=== PATIENT | male | born 1995 | race Caucasian/White ===

== ENCOUNTER 2021-03-04 16:59 | Emergency (ER) | payer BC ==
[2021-03-04] MEDS ORDERED: MVI, Adult with Vitamin K 10 ML, Thiamine 100 MG, Folic Acid 1 MG, Magnesium Sulfate 3 ... IV SCH ×5 (17:15)
--- NOTE | 2021-03-04 17:30 | EDM.PDOC ---
ED HPI GENERAL MEDICAL PROBLEM - General Chief Complaint: Drug or Alcohol Abuse Stated Complaint: INTOXICATED Time Seen by Provider: 03/04/21 16:59 Source of Information: Reports: Patient, EMS History Limitations: Reports: Altered Mental Status - History of Present Illness INITIAL COMMENTS - FREE TEXT/NARRATIVE: 25 yo m brought in to ED by EMS 2/2 suspected alcohol intoxication. EMS reported that BS was 123 and that pt was non-responsive. By the time the pt arrived in trauma room 2 he was A/O X3. He stated that he has not had anything but alcohol including no food or fluids. He was at an outdoor activity. He reports that he is not an everyday drinker, he has not used any elicit drugs, and he has never had withdraw. He denies pain, chest pain, nausea, and SOB. He has had a recent trauma on 11/16/2020, a crush injury the the LLE but that this injury is being properly cared for. He has no other complaints or concerns at this time. - Related Data Allergies Allergy/AdvReac Type Severity Reaction Status Date / Time No Known Allergies Allergy Verified 03/04/21 17:14 Home Meds: Home Meds NK [No Known Home Meds] 03/04/21 [History] ED ROS GENERAL - Review of Systems Review Of Systems: See Below Constitutional: Reports: Weakness, Fatigue HEENT: Reports: No Symptoms Respiratory: Reports: No Symptoms Cardiovascular: Reports: No Symptoms Endocrine: Reports: No Symptoms GI/Abdominal: Reports: No Symptoms : Reports: No Symptoms Musculoskeletal: Reports: Other (recent, 11/16/2020, crush injury to LLE) Skin: Reports: Other (skin graft left anterior thigh, wound anterior lower leg) Neurological: Reports: No Symptoms Psychiatric: Reports: No Symptoms Hematologic/Lymphatic: Reports: No Symptoms Immunologic: Reports: No Symptoms - Physical Exam Exam: See Below Exam Limited By: No Limitations General Appearance: Lethargic, Other (easily wakes) Eye Exam: Bilateral Eye: EOMI, PERRL Head Exam: Atraumatic Neck: Normal Inspection Respiratory/Chest: No Respiratory Distress, Lungs Clear, Normal Breath Sounds Cardiovascular: Normal Peripheral Pulses, Regular Rate, Rhythm, No Murmur GI/Abdominal: Normal Bowel Sounds, Non-Tender Neuro Exam (Abbreviated): Alert, Oriented, Normal Cognition, Other (moves all extremities on request, sensation and strength intact rafael) Back Exam: Normal Inspection. No: CVA Tenderness (R), CVA Tenderness (L), Paraspinal Tenderness, Vertebral Tenderness Extremities: Other (large flutuleant lesion LLE, skin grafting left thigh) Psychiatric: Normal Affect, Normal Mood Course - Vital Signs Last Recorded V/S: Last Vital Signs Temp 36.5 C 03/04/21 17:15 Pulse 114 H 03/04/21 17:15 Resp 18 03/04/21 17:15 BP 122/68 03/04/21 17:15 Pulse Ox 95 03/04/21 17:15 - Orders/Labs/Meds Orders: Active Orders 24 hr Category Date Time Status DRUG SCREEN, URINE ALERE [URCHEM] Stat Lab 03/04/21 17:15 Ordered MVI, Adult with Vitamin K [Infuvite Adult] 10 ml Med 03/04/21 17:15 Active Thiamine [Vitamin B-1] 100 mg Folic Acid 1 mg Magnesium Sulfate [Magnesium Sulfate 50%] 3 gm Sodium Chloride 0.9% [Normal Saline] 1,000 ml IV ASDIRECTED Sodium Chloride 0.9% [Normal Saline] 1,000 ml Med 03/04/21 18:23 Active IV .BOLUS Medication Orders Multivitamins/Minerals 10 ml/Thiamine HCl 100 mg/ Folic Acid 1 mg/ Magnesium Sulfate 3 gm/ Sodium Chloride 1,017.2 mls @ 999 mls/hr IV ASDIRECTED [facility] Last Admin: 03/04/21 18:01 Dose: 999 mls/hr Documented by: DIFFCAL Sodium Chloride (Normal Saline) 1,000 mls @ 999 mls/hr IV .BOLUS ONE Stop: 03/04/21 19:23 Labs: Laboratory Tests 03/04/21 03/04/21 03/04/21 Range/Units 18:25 18:25 18:25 WBC 10.6 H (3.2-10.1) x10-3/uL RBC 5.40 (3.90-5.90) x10(6)uL Hgb 14.2 (12.9-17.7) g/dL Hct 43.7 (38.3-50.1) % MCV 80.9 (80.8-98.7) fL MCH 26.2 L (27.0-33.3) pg MCHC 32.4 (28.7-35.3) g/dL RDW 15.2 H (12.4-15.0) % Plt Count 251 (117-477) x10(3)uL MPV 8.3 (6.7-11.0) fL Neut % (Auto) 84.4 H (40.3-71.8) % Lymph % (Auto) 10.8 L (15.8-45.3) % Cameron % (Auto) 4.5 L (5.5-15.2) % Eos % (Auto) 0.1 (0.1-6.8) % Baso % (Auto) 0.2 L (0.3-3.8) % Neut # (Auto) 9.0 H (1.7-6.9) x10-3/uL Lymph # (Auto) 1.1 (0.5-4.5) x10-3/uL Cameron # (Auto) 0.5 (0.0-1.2) x10-3/uL Eos # (Auto) 0.0 (0.0-0.6) x10-3/uL Baso # (Auto) 0.0 (0.0-0.3) x10-3/uL Sodium 144 (135-145) mmol/L Potassium 4.2 (3.5-5.3) mmol/L Chloride 106 (100-110) mmol/L Carbon Dioxide 22 (21-32) mmol/L BUN 13 (7-18) mg/dL Creatinine 1.1 (0.70-1.30) mg/dL Est Cr Clr Drug Dosing 110.72 mL/min Estimated GFR (MDRD) > 60 (>60) BUN/Creatinine Ratio 11.8 (9-20) Glucose 96 (80-116) mg/dL Calcium 8.2 L (8.6-10.2) mg/dL Total Bilirubin 0.2 (0.1-1.3) mg/dL AST 22 (5-25) IU/L ALT 48 H (12-36) U/L Alkaline Phosphatase 98 (56-112) IU/L Total Protein 7.0 (6.0-8.0) g/dL Albumin 3.8 (3.5-5.2) g/dL Globulin 3.2 g/dL Albumin/Globulin Ratio 1.2 Ethyl Alcohol 0.22 H* (<0.03) % Meds: Medications Generic Name Dose Route Start Last Admin Trade Name Dorita PRN Reason Stop Dose Admin Multivitamins/Minerals 10 ml/ 1,017.2 mls @ 999 mls/hr 03/04/21 17:15 03/04/21 18:01 Thiamine HCl 100 mg/ Folic IV 999 mls/hr Acid 1 mg/ Magnesium Sulfate 3 ASDIRECTED JEAN CARLOS Administration gm/ Sodium Chloride Sodium Chloride 1,000 mls @ 999 mls/hr 03/04/21 18:23 Normal Saline IV 03/04/21 19:23 .BOLUS ONE Departure - Departure Time of Disposition: 19:17 Disposition: Still A Patient 30 Clinical Impression: Alcohol abuse - Discharge Information *PRESCRIPTION DRUG MONITORING PROGRAM REVIEWED*: Not Applicable *COPY OF PRESCRIPTION DRUG MONITORING REPORT IN PATIENT THONG: Not Applicable Forms: ED Department Discharge Sepsis Event Note (ED) - Focused Exam Vital Signs: Vital Signs Temp Pulse Resp BP Pulse Ox 03/04/21 17:15 36.5 C 114 H 18 122/68 95 - My Orders Last 24 Hours: My Active Orders 03/04/21 17:15 DRUG SCREEN, URINE ALERE [URCHEM] Stat MVI, Adult with Vitamin K [Infuvite Adult] 10 ml Thiamine [Vitamin B-1] 100 mg Folic Acid 1 mg Magnesium Sulfate [Magnesium Sulfate 50%] 3 gm Sodium Chloride 0.9% [Normal Saline] 1,000 ml IV ASDIRECTED 03/04/21 18:23 Sodium Chloride 0.9% [Normal Saline] 1,000 ml IV .BOLUS - Assessment/Plan Last 24 Hours: My Active Orders 03/04/21 17:15 DRUG SCREEN, URINE ALERE [URCHEM] Stat MVI, Adult with Vitamin K [Infuvite Adult] 10 ml Thiamine [Vitamin B-1] 100 mg Folic Acid 1 mg Magnesium Sulfate [Magnesium Sulfate 50%] 3 gm Sodium Chloride 0.9% [Normal Saline] 1,000 ml IV ASDIRECTED 03/04/21 18:23 Sodium Chloride 0.9% [Normal Saline] 1,000 ml IV .BOLUS
[2021-03-04] MEDS ORDERED: Sodium Chloride 0.9% 1,000 ML IV ONE (18:23)
== END 2021-03-04 19:45 | disposition still patient (30) ==
LOC: EDBD → FB.ED 16:59
DX: F10.129 Alcohol abuse with intoxication, unspecified (principal); Y90.5 Blood alcohol level of 100-119 mg/100 ml
CPT/HCPCS: 36415; 80053; 80307; 85025; 96365; 99284-25; J3411; J3475; J3490; J7030